=== PATIENT | female | born 1990 | race Hispanic/Latino ===

== ENCOUNTER 2020-01-02 11:24 | Outpatient (CLI) | payer OTHER ==
[2020-01-04 23:12] LABS: SARS-CoV-2 MS2 Positive; SARS-CoV-2 N Gene Negative; SARS-CoV-2 S Gene Negative; SARS-CoV-2 by NAA Not Detected (Not Detected); SARS-CoV-2 orf1ab Negative
== END 2020-01-02 11:25 | disposition home or self-care (01) ==
LOC: LABBT 11:24
PROVIDERS: ATTEND Family Medicine
DX: Z20.828 Contact with and (suspected) exposure to other viral communicable diseases (principal)
CPT/HCPCS: 87635; U0003

== ENCOUNTER 2020-01-03 21:56 | Inpatient (IN) | payer OTHER, SELFPAY ==
[2020-01-03 22:20] VITALS: BMI 27.4
[2020-01-04 01:01] LABS: Hemoglobin 13.5 g/dL (12.0-16.0); Mean Corpuscular Hemoglobin 33.4 pg (27.0-31.0); Mean Corpuscular Volume 95.5 fL (78.0-98.0); Mean Platelet Volume 9.3 fL (7.4-10.4); Platelet Count 205 thou/uL (130-400); RBC Distribution Width 11.9 % (11.5-14.5); Red Blood Cell (RBC) Count 4.03 mill/uL (4.20-5.40); White Blood Cell (WBC) Count 15.1 thou/uL (4.8-10.8)
--- NOTE | 2020-01-04 01:09 | PDOC.LDPN ---
Labor & Delivery Progress Note -: HPI: 29yo F @ 37 wks presents to L&D with complaints of contractions. States they started around 1430 this afternoon and have been moderately painful. They have persisted through tonight and got as close as 5-9 minutes apart. She also notes a minimal amount of brown vaginal discharge that started this morning. She had a cervical check in the clinic 2 days ago and was not significantly dilated. Had her COVID swab yesterday. Denies any vaginal bleeding, LOF, dysuria, frequency, recent illness, fever, chills. Current gestational age (weeks): 37 Dating criteria: last menstrual period Grav: 3 Para: 2 Current complications: none Abnormal US findings: No Past Medical History: Hypothyroidism Current medications: pre-thalia vitamins Previous surgical history: none Allergies/Adverse Reactions: Allergies Allergy/AdvReac Type Severity Reaction Status Date / Time No Known Allergies Allergy Verified 01/03/20 22:07 Social history: none - Physical Exam Vital signs reviewed and normal: yes General: NAD Heart: RRR Lungs: CTAB Abdomen: gravid Extremeties: no edema FHT: category 1, variability present [place] contractions every: 7-10 - Vaginal Exam cm dilated: 1 Effacement: 0% Station: -3 - OB Labs Blood type: O RH: positive Antibody Screen: negative HIV: negative RPR: negative HEPSAg: negative 1 hour GCT: negative (101) GBS: unknown Rubella: immune - Assessment Term IUP - Contractions - Plan -: -Initial SVE: 1/Th/High -[place] contractions q7-10 minutes -Repeat SVE: /-2 Plan: Pt making cervical change and continues to consistently contract. will admit to L&D with expectant management at this time.
[2020-01-04] MEDS ORDERED: Misoprostol 200 MCG TAB PR PRN (01:10)
[2020-01-04] MEDS ORDERED: NS / Oxytocin 40 units/1000ml 1,000 ML IV PRN (01:10)
[2020-01-04] MEDS ORDERED: Ondansetron PF 4 MG/2 ML Vial IVP PRN ×3 (01:10→13:52)
[2020-01-04] MEDS ORDERED: Lidocaine 1% (PF) 30 ML VIAL SC PRN (01:10)
[2020-01-04] MEDS ORDERED: Ibuprofen 800 MG TAB PO PRN (01:10)
[2020-01-04] MEDS ORDERED: Acetaminophen 500 MG TAB PO PRN (01:10)
[2020-01-04] MEDS ORDERED: Butorphanol Tartrate 1 MG/ML VIAL SLOW IVP PRN (01:10)
[2020-01-04] MEDS ORDERED: Methylergonovine 0.2 MG/ML VIAL IM PRN (01:10)
[2020-01-04] MEDS ORDERED: Carboprost 250 MCG/ML AMP IM PRN (01:10)
[2020-01-04] MEDS ORDERED: Promethazine HCl 25 MG/ML VIAL IM PRN ×2 (01:10→08:57)
[2020-01-04] MEDS ORDERED: hydrALAZINE 20 MG/ML VIAL SLOW IVP PRN ×2 (01:10→13:52)
[2020-01-04] MEDS ORDERED: NS w/ Oxytocin 10 units 500 ML IV SCH (01:15)
[2020-01-04] MEDS: Lactated Ringer's 1,000 ML IV SCH ×2 (02:00→19:18)
[2020-01-04 02:05] LABS: HBSAg Index 0.21 S/CO (0-0.99); Hep B Surf Ag Non-Reactive S/CO (NonReactive)
[2020-01-04 03:51] LABS: Syphilis Antibody Nonreactive (Nonreactive); Syphilis Antibody Index 0.06 S/CO (<1.00 Non-Reactive)
--- NOTE | 2020-01-04 07:49 | PDOC.BPN ---
- Brief Progress Note Encounter Date: 01/04/20 Encounter Time: 07:41 S: Pt continues to feel strong contractions that are now very consistent. O: SVE: /-2 [place]: cxns q 4-6 FHT: Cat 1, reactive, baseline 125 Vitals: All WNL A/Plan: Pt continues to make cervical change on her own. Continue expectant management at this time.
[2020-01-04] MEDS ORDERED: Fentanyl 4 mcg/Bup 0.1% Cadd 100 ML ONE (08:11)
[2020-01-04] MEDS ORDERED: Lactated Ringer's 500 ML IV PRN (08:57)
[2020-01-04] MEDS ORDERED: Naloxone HCl 0.4 mg/ml Vial IVP PRN ×2 (08:57)
[2020-01-04] MEDS ORDERED: diphenhydrAMINE 50 MG/ML VIAL IVP PRN (08:57)
[2020-01-04] MEDS ORDERED: Acetaminophen 325 MG TAB PO PRN (08:57)
[2020-01-04] MEDS ORDERED: EPHEDRINE 25 MG/5 ML SYRINGE SLOW IVP PRN (08:57)
[2020-01-04] MEDS ORDERED: Communication Order-Pharmacy FS SCH (09:00)
[2020-01-04] MEDS ORDERED: Fentanyl 4 mcg/Bupivacaine 0.1% Cassette 100 ML EPIDURAL SCH (09:00)
--- NOTE | 2020-01-04 09:20 | PDOC.BPN ---
<Sherlyn Ceron - Last Filed: 01/04/20 09:19> - Brief Progress Note Encounter Date: 01/04/20 Encounter Time: 09:10 SVE: 7/0-1 AROM with clear fluid Cat 1 strip: baseline FHT: 120 ,mod variabiltiy, no decels, acels present. <Kleber Goodson - Last Filed: 01/04/20 10:13> Addendum - Attending - Attending Attestation Date/Time: 01/04/20 1012 I personally evaluated the patient and discussed the management with Dr. Ceron. Multip at term in labor, managing for Dr. Chance who is OOT. I agree with the History, Examination, Assessment and Plan documented above.
--- NOTE | 2020-01-04 11:05 | PDOC.BPN ---
<Sherlyn Ceron - Last Filed: 01/04/20 11:02> - Brief Progress Note Encounter Date: 01/04/20 Encounter Time: 11:00 SVE: discussed starting pitocin with pt, who is agreeable to pit for augmentation starting pit and titrating up as appropriate Cat 1 strip: 130 baseline, mod lemuel, no decels, acels present nurse to notify with any changes in FHT baseline, or decels/changes. Plan discussed with Dr. Goodson, attending physician, who is in agreement with above stated plan. <Kleber Goodson - Last Filed: 01/04/20 11:26> Addendum - Attending - Attending Attestation Date/Time: 01/04/20 1125 I personally evaluated the patient and discussed the management with Dr. Ceron. No progress post AROM, now with epidural. Will start pitocin. I agree with the History, Examination, Assessment and Plan documented above.
--- NOTE | 2020-01-04 12:46 | PDOC.OPDEL ---
OB Operative/Delivery Note Delivery Dr/Surgeon: Hamzah Assist: Osmany Pre-Delivery Diagnosis: active labor Procedure/Post Delivery Dx: spontaneous vaginal delivery Weeks gestation: 39 Anesthesia: epidural - Additional Findings/Plan Placenta delivered: spontaneous Repaired Obstetrical Laceration: none Estimated blood loss: 300 cc, QBL pending Compilations/Other Findings: of viable male, Apgars 8/9. Placenta intact Jose M. Perineum intact. Baby and Mom doing well. Post delivery plan: routine recovery
[2020-01-04] MEDS ORDERED: NS / Oxytocin 40 units/1000ml 1,000 ML IV SCH (13:52)
[2020-01-04] MEDS ORDERED: Lanolin Ointment 7 GM TUBE TOP PRN (13:52)
[2020-01-04] MEDS ORDERED: diphenhydrAMINE 25 MG CAP PO PRN (13:52)
[2020-01-04] MEDS ORDERED: Preparation H Ointment 28 GM TUBE PR PRN (13:52)
[2020-01-04] MEDS ORDERED: Adacel (T-DAP) 0.5 ML SYRINGE IM ONE (13:52)
[2020-01-04] MEDS ORDERED: Bisacodyl 10 MG SUPP PR PRN (13:52)
[2020-01-04] MEDS ORDERED: Benzocaine-Menthol 82.5 ML CAN TOP PRN (13:52)
[2020-01-04] MEDS ORDERED: Milk Of Magnesia 30 ML UDCUP PO PRN (13:52)
[2020-01-04] MEDS: Ibuprofen 800 MG TAB PO SCH ×2 (19:18→20:53)
[2020-01-04] MEDS: Ferrous Sulfate 325 MG TAB PO SCH (19:18)
[2020-01-04] MEDS: Docusate Calcium (SURFAK) 240 MG CAP PO SCH (20:53)
[2020-01-05] MEDS: Ibuprofen 800 MG TAB PO SCH ×2 (05:20→15:23)
[2020-01-05 06:07] LABS: Hemoglobin 12.1 g/dL (12.0-16.0)
[2020-01-05] MEDS: Ferrous Sulfate 325 MG TAB PO SCH ×2 (08:01→17:44)
[2020-01-05] MEDS: Docusate Calcium (SURFAK) 240 MG CAP PO SCH (08:09)
[2020-01-05] MEDS ORDERED: Prenatal Vitamin 1 TAB PO SCH (09:00)
[2020-01-05 12:07] VITALS: BP 105/56; TEMP 98.3
== END 2020-01-05 19:30 | disposition home or self-care (01) | DRG 807 ==
LOC: L&D/OP 21:56 → L&D 01-04 01:57 → 3SW 01-04 15:32
PROVIDERS: ADMIT Family Medicine; ATTEND Family Medicine
PROC: 10E0XZZ Delivery of Products of Conception, External Approach (ICD-10-PCS; principal; 2020-01-04)
DX: O99.284 Endocrine, nutritional and metabolic diseases complicating childbirth (principal); Z37.0 Single live birth; E03.9 Hypothyroidism, unspecified; Z20.828 Contact with and (suspected) exposure to other viral communicable diseases; Z3A.37 37 weeks gestation of pregnancy; Z79.890 Hormone replacement therapy
CPT/HCPCS: 36415; 51702; 85014; 85018; 85027; 86780; 86850; 86900; 86901; 87340; 99285; J2590